=== PATIENT | male | born 1970 | race Caucasian/White ===

== ENCOUNTER 2016-12-06 20:53 | Emergency (ER) | payer SELFPAY ==
[~2016-12-06] VITALS: Ht 175.3 cm; Wt 79.4 kg
[2016-12-06] MEDS ORDERED: NKM (21:01)
[2016-12-06] MEDS ORDERED: Lidocaine 1% 10mg/ml/Epi 0.005mg/ml 30ml vial INJ ONE (21:16)
[2016-12-06] MEDS ORDERED: Bacitracin Oint UD TOPIC ONE (21:41)
[2016-12-06] MEDS ORDERED: AUGMENTIN 875-1 EAC1 ORAL (21:45)
[2016-12-06] MEDS ORDERED: IBUPROFEN600 MG ORAL (21:45)
[2016-12-06 22:06] VITALS: BP 113/71
--- NOTE | 2016-12-07 03:44 | Emergency Room Report ---
History of Present Illness General Chief Complaint: Laceration Source: Patient Present Illness HPI Patient presents with laceration to the left hand This occurred while he was using a chisel Making a chair Pain is 6/10 localized to the lacerated area This happened just prior to arrival Patient is up-to-date with immunizations Reports localized pain Denies any other chest pain or shortness of breath Allergies: Coded Allergies: No Known Allergies (Unverified , 12/06/16) Patient History Past Medical History: see triage record Pertinent Family History: none Reviewed Nursing Documentation: PMH: Agreed, PSxH: Agreed Nursing Documentation-PMH Past Medical History: No Stated History Review of Systems All Other Systems: negative except mentioned in HPI Physical Exam Vital Signs Date Time Temp Pulse Resp B/P Pulse Ox O2 Delivery O2 Flow Rate FiO2 12/06/16 20:58 97.3 86 16 96/63 96 Room Air Sp02 EP Interpretation: reviewed, normal General Appearance: mild distress - Patient is uncomfortable with the laceration closing his eyes Head: normocephalic, atraumatic Eyes: bilateral eye EOMI, bilateral eye PERRL ENT: hearing grossly normal, normal pharynx Neck: supple Respiratory: lungs clear Musculoskeletal: other - Patient able to make a thump to the left thumb able to approximate sensory intact, Neurologic: alert, oriented x3, responsive, 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 Skin: other - Approximately 1.5 cm laceration to dorsal aspect of the left web of the hand Lymphatic: no adenopathy Procedures Splinting Splinting : Consent: Verbal Location: Left hand Pre-Made Type: velcro Splint: thumb spica Pre-Proc Neuro Vasc Exam: normal Post-Proc Neuro Vasc Exam: normal Patient Tolerated: Well Complications: None Laceration/Wound Repair Laceration/Wound Repair : Consent: Verbal Wound Location: upper extremity Wound's Depth, Shape: into muscle Wound Length (cm): 1 Wound Explored: clean Irrigated w/ Saline (ccs): 200 Anesthesia: Lidocaine w/ Epi Volume Anesthetic (ccs): 4 Wound Debrided: minimal Wound Repaired With: sutures Suture Size/Type: 6:0 Number of Sutures: 5 Layer Closure?: No Sterile Dressing Applied?: Yes Splint Applied?: Yes Type of Splint Applied: thumb spica Patient Tolerated: Well Complications: None Medical Decision Making Diagnostic Impression: Primary Impression: Laceration ER Course Patient had the hand laceration repaired as noted above Antibiotic ointment and dressing was applied Given the puncture-type laceration as well patient placed on oral antibiotics And requires close outpatient followup Chest X-Ray Diagnostic Results Chest X-Ray Ordered: No Last Vital Signs Date Time Temp Pulse Resp B/P Pulse Ox O2 Delivery O2 Flow Rate FiO2 12/06/16 22:06 97.3 84 16 113/71 98 Room Air Status: improved Disposition: HOME, SELF-CARE Condition: Improved Scripts Ibuprofen* (MOTRIN*) 600 Mg Tablet 600 MG ORAL Q8H Y for For Pain, #20 TAB 0 Refills Prov: CARMEN HAMMONDS D.O. 12/06/16 Amoxicillin/Potassium Clav 875-125* (AUGMENTIN 875-125 TABLET*) 1 Each Tablet 1 TAB ORAL TWICE A DAY, #14 TAB Prov: CARMEN HAMMONDS D.O. 12/06/16 Referrals: NOT CHOSEN IPA/MD,REFERRING (PCP) Patient Instructions: Laceration Care, Adult Additional Instructions: Patient is provided with the discharge instructions notified to follow up with primary doctor in the next 2-3 days otherwise return to the er with any worsening symptoms. Please note that this report is being documented using [employer] technology. This can lead to erroneous entry secondary to incorrect interpretation by the dictating instrument. CARMEN HAMMONDS D.O. Dec 07, 2016 03:44
== END 2016-12-06 22:07 | disposition home or self-care (01) ==
LOC: EMR 21:28
DX: S61.412A Laceration without foreign body of left hand, initial encounter (principal); W27.8XXA Contact with other nonpowered hand tool, initial encounter; Y93.9 Activity, unspecified; Y92.9 Unspecified place or not applicable
CPT/HCPCS: 29280